=== PATIENT | male | born 1970 | race Caucasian/White ===

== ENCOUNTER 2021-07-13 09:55 | Outpatient (CLI) | payer OTHER, SELFPAY ==
--- NOTE | 2021-07-13 10:02 | MR_ITS ---
WS: [id number] MRI LUMBAR SPINE NONCONTRAST TECHNIQUE: Sagittal T1, T2 and STIR imaging. Axial T1 and T2 imaging. CLINICAL INFORMATION: BACK PAIN COMPARISON: None. FINDINGS: Mild lumbar curve. No acute compression. No high-grade central canal stenosis. T12-L1:Tiny RIGHT pericentral protrusion T12-L1. Spinal canal and foramen are patent. Mild facet arth ropathy. L1-L2: Mild annular bulging. Spinal canal and foramen are patent. L2-L3: Tiny central disc protrusion. Spinal canal and foramen are patent. L3-L4: No significant disc bulging. Mild facet arthropathy. Mild LEFT foraminal narrowing. Mild facet arthropathy. L4-L5: Shallow central disc protrusion with slight effacement of ventral thecal sac. Slight narrowing of the subarticular recess bilaterally LEFT greater than RIGHT. Mild facet arthropathy. Foramen are patent. L5-S1: Mild disc bulging with osteophytic ridging. Mild facet arthropathy. Spinal canal and foramen a re patent. Incidental Tarlov cysts in the sacrum. RIGHT T2 hyperintense renal lesion likely renal cyst measuring 2.1 cm MR/MR lumbar spine wo con* [id number] IMPRESSION: 1. Mild lumbar curve. No acute compression. No high-grade central canal stenos is. 2. Shallow central disc protrusion L4-L5 with a tiny annular fissure. Slight n arrowing of the LEFT greater than RIGHT subarticular recess. Spinal canal is pa tent. 3. Mild LEFT L3-L4 foraminal narrowing. 4. Tiny RIGHT pericentral protrusion T12-L1. 5. Tiny shallow central protrusion L2-L3 with slight effacement of ventral the oksana sac. 6. Mild facet arthropathy L3-L5. 7. RIGHT T2 hyperintense renal lesion likely renal cyst measuring 2.1 cm. This can be further evaluated with ultrasound.
--- NOTE | 2021-07-13 10:03 | MR_ITS ---
WS: [id number] MRI THORACIC SPINE WITHOUT CONTRAST TECHNIQUE: Sagittal T1, T2 and STIR imaging. Axial T2 imaging. Noncontrast imaging obtained. CLINICAL INFORMATION: BACK PAIN COMPARISON: None. FINDINGS: Mild thoracic curve. No acute compression. No high-grade central canal stenosis. Cord signal is katarina l. Small RIGHT pericentral protrusion T12-L1. Mild to moderate facet arthropathy lower thoracic spine . No disc extrusions. Normal caliber thoracic aorta. Normal adrenal glands. Small RIGHT renal cyst 12 mm. 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 MR/MR thoracic spin wo con* [id number] IMPRESSION: 1. Mild thoracic curve. No acute compression. No high-grade central canal sten osis. 2. Cord signal is normal. 3. Small RIGHT pericentral protrusion T12-L1. 4. Mild to moderate facet arthropathy lower thoracic spine. 5. No other significant findings.
== END 2021-07-13 09:56 | disposition home or self-care (01) ==
LOC: RAD 09:56
PROVIDERS: PCP Nurse Practitioner Family; Visit Provider Nurse Practitioner Family
DX: M62.838 Other muscle spasm (principal); R20.2 Paresthesia of skin; M51.25 Other intervertebral disc displacement, thoracolumbar region; M47.814 Spondylosis without myelopathy or radiculopathy, thoracic region; M51.26 Other intervertebral disc displacement, lumbar region; M47.816 Spondylosis without myelopathy or radiculopathy, lumbar region
CPT/HCPCS: 72146; 72148

== ENCOUNTER → 2021-08-04 11:06 | Outpatient (BNVA) | payer OTHER, SELFPAY | PROVIDERS: PCP Nurse Practitioner Family; Referring Provider Nurse Practitioner Family; Visit Provider Orthopaedic Surgery | DX: M54.50 Low back pain, unspecified (principal) | CPT/HCPCS: 72110 ==

== ENCOUNTER 2021-08-10 06:00 | Outpatient (RCR) | payer OTHER, SELFPAY | END 2021-08-27 23:59 | disposition home or self-care (01) | LOC: TPT 06:00 | PROVIDERS: PCP Nurse Practitioner Family; Referring Provider Orthopaedic Surgery; Visit Provider Orthopaedic Surgery | DX: M54.50 Low back pain, unspecified (principal) | CPT/HCPCS: 97110; 97162 ==

== ENCOUNTER 2021-08-28 | Outpatient (RCR) | payer OTHER, SELFPAY | END 2021-09-20 23:59 | disposition home or self-care (01) | LOC: TPT | PROVIDERS: PCP Nurse Practitioner Family; Referring Provider Orthopaedic Surgery; Visit Provider Orthopaedic Surgery | DX: M54.50 Low back pain, unspecified (principal) | CPT/HCPCS: 97110 ==

== ENCOUNTER 2022-12-20 05:49 | Day surgery (SDC) | payer OTHER, SELFPAY ==
[2022-12-19 10:41] VITALS: BMI 31.4
[2022-12-20] VITALS (8 sets, daily range): BP systolic 110–177; BP diastolic 66–91; PULSE 54–68; RESP 16–18; TEMP 36.2–36.4; O2SAT 93–98
--- NOTE | 2022-12-20 05:43 | W.PM.OPSUD ---
Surgery/Procedure H&P Update DATE OF PROCEDURE: December 20, 2022 DATE H&P PERFORMED: 12/04/22 H&P UPDATE INFORMATION: I have reviewed H&P completed within last 30 days, I have examined patient prior to procedure, No changes to prior documentation and H&P is in [facility] [place] on date indicated PLANNED PROCEDURE: Operation Date: 12/20/22 07:00 Proposed Procedures p [id number] open umbilical hernia with Mesh K42.9(Not Applicable) - Kyle Limon MD
[2022-12-20] MEDS: sodium chloride 0.9% 1,000 ML 30 ML IV (06:45)
--- NOTE | 2022-12-20 07:06 | ANES.PREANE2 ---
Pre-Anesthetic Assessment Height/Weight: Height 1.8 m Weight 102.058 kg Temp Pulse Resp BP Pulse Ox O2 Del Method 97.6 F 61 18 177/76 98 Room Air 12/20/22 06:05 12/20/22 06:05 12/20/22 06:05 12/20/22 06:05 12/20/22 06:05 12/20/22 06:14 Preop Diagnosis: Umbilical hernia Operation Date: 12/20/22 07:00 Proposed Procedures p [id number] open umbilical hernia with Mesh K42.9(Not Applicable) - Kyle Limon MD Familial anesthetic complications: none Was Beta Sarah taken within 24 hours: N/A Was Clonidine taken within 24 hours: N/A Last intake: Intake Last Liquid Date 12/19/22 Last Liquid Time 20:00 Last Solid Date 12/19/22 Last Solid Time 19:30 Social No alcohol and No tobacco Exam alert, oriented x 3, clear to auscultation bilaterally and regular rate & rhythm Airway Submandibular: within normal limits Cervical ROM: within normal limits Mallampati: Class II Dentition: full CV/HEM Hypertension Musc/skel Lower Back Pain and Osteoarthritis/DJD Anesthetic Plan ASA status: 2 Anesthesia: General Medications/Allergies Home Medications Medication Instructions Recorded Confirmed Last Taken Type olmesartan 40 mg tablet 40 mg PO DAILY #90 tabs 11/06/22 12/19/22 12/19/22 Rx Allergies Allergy/AdvReac Type Severity Reaction Status Date / Time Penicillins Allergy Unknown can't Verified 12/19/22 10:40 remember Current Medications Generic Name Dose Route Start Last Admin Trade Name Chandrakantq PRN Reason Stop Dose Admin Sodium Chloride 1,000 mls @ 30 mls/hr 12/20/22 06:00 12/20/22 06:45 Sodium Chloride 0.9% IV 12/21/22 05:59 30 mls/hr .Q24H ALLAN Administration PFSH Anesthesia Medical History Bilateral leg paresthesia Hypertension Low back pain with sciatica Lumbago with sciatica, right side Other intervertebral disc degeneration, lumbar region Other intervertebral disc displacement, lumbosacral region Family History (Updated 12/04/22 @ 08:12 by JOSE Bennett) Father Diabetes Heart disease Social History (Updated 12/04/22 @ 08:13 by JOSE Bennett) Smoking and tobacco status: former smoker Alcohol intake: current Alcohol intake frequency: holidays/special occasions only Alcohol type: beer Data Anesthesia Cardiac Studies: No Data to Display
[2022-12-20] MEDS: ceFAZolin 2,000 MG in sodium chloride 0.9% (plus) 50 ML 100 MG IV (07:14)
[2022-12-20] MEDS: BUPivacaine 0.25% INJ 10 mL INJECTION (08:00)
[2022-12-20] MEDS: lidocaine-epi 1% 20 mL INJ 9 ML INJECTION (08:01)
--- NOTE | 2022-12-20 08:08 | P.OP_ITS ---
Operative Report Date of procedure: December 20, 2022 Pre-op diagnosis: Preop Diagnosis Umbilical hernia Post-op diagnosis: Same Procedure done: Open umbilical hernia repair, primary Implants: None Specimens removed/disposition: Known Surgeon: Kyle Limon MD Estimated blood loss: 5cc Complications: Known Findings: 1 cm umbilical hernia containing chronically incarcerated fat Brief History: Is a 52-year-old male who presented to my clinic with umbilical hernia, per patient report his hernia has become painful and incarcerated and therefore he decided to look for treatment. I had extensive discussion regarding the risk and benefits as documented in my consult note, after this decision was made to proceed to the OR for possible open hernia repair with or without mesh. Procedure: Patient was taken to the OR placed in the supine position, general esthesia given, the abdomen was prepped and draped in the usual sterile fashion. Timeout was conducted. I infraumbilical semicircular incision was made, the incision was carried down to the level of the fascia. I then used a Diana clamp to encircle the umbilical stalk. I then carefully the umbilical stalk from the skin with electrocautery. Once umbilical stalk was , hernia contents were noted to be incarcerated fat, the contents were able to be reduced into the abdominal cavity. The hernia defect at this moment measure about 1 cm, therefore the decision to proceed with primary repair was made. The fascia was circumferentially cleared of any adhesions to preperitoneal fat and intra- abdominal contents. I then proceeded to primarily close the hernia defect with 5 [id number] 0 Prolene sutures. This was done with great care to not injure any intra-abdominal organs. After the repair was completed, I tacked the umbilicus down to the fascia with 2-0 Vicryl. The wound was irrigated, hemostasis was obtained. The wound was then closed in layers using #3-0 Vicryl for the subcutaneous tissue and #4-0 Monocryl for the skin, Dermabond was applied and over dilated to the sterile dressing with a compressive gauze. The patient tolerated the procedure well, was extubated and transferred to the PACU in stable condition. At the end of the procedure all the counts were correct.
[2022-12-20] MEDS: meloxicam 7.5 mg tablet PO (09:25)
--- NOTE | 2022-12-20 15:06 | ANE.PACU2 ---
Inpatient post-anesthesia follow up: Airway intact: Yes Vital signs: Temperature 97.2 F Pulse Rate 56 Respiratory Rate 18 Blood Pressure 126/82 Pulse Oximetry 96 Oxygen Delivery Me thod Room Air Oxygen Flow Rate 6 Fraction of Inspir ed Oxygen Hydration adequate: Yes Nausea and vomiting: No Pain level: 3 Mental status: Baseline
== END 2022-12-20 09:42 | disposition home or self-care (01) ==
PROVIDERS: PCP Nurse Practitioner Family; Visit Provider Surgery
DX: K42.9 Umbilical hernia without obstruction or gangrene (principal); I10 Essential (primary) hypertension; Z87.891 Personal history of nicotine dependence
CPT/HCPCS: 49591; J0131; J0690; J1100; J1885; J2250; J2405; J2704; J2710; J3010; J3490; J7030

== ENCOUNTER → 2024-07-22 15:09 | Outpatient (BNVA) | payer OTHER, SELFPAY | PROVIDERS: PCP Nurse Practitioner Family; Visit Provider Nurse Practitioner Family | DX: T59.811A Toxic effect of smoke, accidental (unintentional), initial encounter (principal); Z77.098 Contact with and (suspected) exposure to other hazardous, chiefly nonmedicinal, chemicals | CPT/HCPCS: 71046 ==